=== PATIENT | female | born 1985 ===

== ENCOUNTER 2019-07-02 19:26 | Inpatient (IN) | payer MEDICARE ==
[~2019-07-02] VITALS: Ht 157.5 cm; Wt 48.5 kg
[~2019-07-02 19:26] MED LIST: GLUCOPHAGE500 MG PO; GLUCOTROL 5 MG T5 MG PO; HYDROCODON-ACE1 EAC7 PO
--- NOTE | 2019-07-02 19:59 | NUR ---
URINE SENT TO LAB AT THIS TIME.
[2019-07-02 20:31] LABS: BASOPHILS 0.6 % (0-2); HEMATOCRIT 39.5 % (36.0-48.0); HEMOGLOBIN 13.7 g/dL (12-16); IMMATURE GRANULOCYTES 0.2 % (0-5); MCH 31.6 pg (26.0-34.0); MCHC 34.7 g/dL (31.0-37.0); MEAN PLATELET VOLUME 10.3 fL (7.4-10.4); MONOCYTES 9.5 % (2-11); NEUTROPHILS 53.7 % (40-80); PLATELET COUNT 216 10x3/uL (130-400); RBC 4.34 10x6/uL (4.00-5.40); RDW 13.6 % (11.5-14.5); WBC 5.1 10x3/uL (4.8-10.8)
[2019-07-02 21:06] LABS: CALC OSMOLALITY 274 mosm/kg (275-300); CALCIUM 8.1 mg/dL (8.5-10.1); CARBON DIOXIDE 23.5 mmol/L (21.0-32.0); CHLORIDE - SERUM 101 mmol/L (98-107); CREATININE - SERUM 0.6 mg/dL (0.6-1.3); GLUCOSE 304 mg/dL (74-106); POTASSIUM - SERUM 3.9 mmol/L (3.5-5.1); SODIUM 133 mmol/L (136-145); UREA NITROGEN 8 mg/dL (7-18); eGFR NON AFRICAN AMERICAN > 90 mL/min (90-120)
[2019-07-02 21:11] LABS: ALBUMIN 2.4 g/dL (3.4-5.0); ALKALINE PHOSPHATASE 647 U/L (30-120); ALT (SGPT) 136 U/L (10-68); BILIRUBIN - TOTAL 0.73 mg/dL (0.2-1.3); MAGNESIUM - SERUM 1.6 mg/dL (1.8-2.4); PROTEIN - SERUM 5.4 g/dL (6.4-8.2); T4 THYROXIN - FREE 1.84 ng/dL (0.76-1.46)
[2019-07-02 21:39] LABS: BILIRUBIN NEGATIVE (NEGATIVE); GLUCOSE 1000 mg/dL (NEGATIVE); KETONE MODERATE mg/dL (NEGATIVE); NITRITE NEGATIVE (NEGATIVE); SPECIFIC GRAVITY 1.025 (1.005-1.020); UROBILINOGEN NORMAL (NORMAL)
[2019-07-02 21:48] VITALS: BP 119/82
--- NOTE | 2019-07-02 21:48 | NUR ---
FSBS 208 AT THIS TIME. PT ARROUSES TO VERBAL AND TACTILE STIMULI. DENIES CURRENT NEEDS. WILL CONTINUE TO MONITOR.
[2019-07-02 22:00] VITALS: BP 115/76
[2019-07-02 22:28] LABS: UDS - AMPHET POSITIVE QUAL (NEGATIVE); UDS - BARB NEGATIVE QUAL (NEGATIVE); UDS - BENZO NEGATIVE QUAL (NEGATIVE); UDS - COCAINE NEGATIVE QUAL (NEGATIVE); UDS - OPIATE NEGATIVE QUAL (NEGATIVE); UDS - PCP NEGATIVE QUAL (NEGATIVE); UDS - THC POSITIVE QUAL (NEGATIVE)
--- NOTE | 2019-07-02 22:34 | NUR ---
PER EDP VERBAL ORDER, SANDWICH AND DIET SODA PROVIDED TO PT.
[2019-07-02 23:00] VITALS: BP 97/68
--- NOTE | 2019-07-02 23:51 | NUR ---
FSBS 205 PT ARROUSES TO VERBAL AND TACTILE STIMULI. DENIES NEEDS.
[2019-07-03] VITALS (7 sets, daily range): BP systolic 101–125; BP diastolic 71–88; Ht 157.5 cm; Wt 48.5 kg
--- NOTE | 2019-07-03 02:00 | NUR ---
PATIENT ARRIVED TO FLOOR VIA STRETCHER. PATIENT LETHARGIC UPON ARRIVED PATIENT HARD TO AROUSE. PATIENT FINALLY DID ANSWER WHEN YOU MOVED HER SHOULDERS. PATIENT STATED "YOU DON'T NEED TO SHAKE ME LIKE THAT". PATIENT RESPIRATIONS ARE EVEN AND UNLABORED. NO S/S OF DISTRESS. NO C/O PAIN. PATIENT VITALS 113/77 95% ON ROOM AIR. RESPIRATIONS 20 PULSE 83. PATIENT REFUSED TO ANSWER ANY ADMISSIONS QUESTION. PATIENT HAD A ZIPLOC BAG OF MEDICATIONS LAYING NEXT TO HER PURSE. PATIENT WAS ASKED IF SHE TAKES ANY OF THOSE MEDICATIONS. SHE STATED PROBABLY. WHEN ASKED IF SHE HAD TAKEN ANY TONIGHT SHE DID NOT ANSWER. PATIENT HOME MEDICATIONS INVENTORIED AND SENT TO PHARMACY. ISAI CANTRELL NOTIFIED REGARDING INCOMPLETE MED REC.
[2019-07-03 05:59] LABS: ALBUMIN 2.4 g/dL (3.4-5.0); ALKALINE PHOSPHATASE 699 U/L (30-120); ALT (SGPT) 150 U/L (10-68); BILIRUBIN - TOTAL 0.67 mg/dL (0.2-1.3); CALCIUM 8.3 mg/dL (8.5-10.1); CHLORIDE - SERUM 103 mmol/L (98-107); CREATININE - SERUM 0.7 mg/dL (0.6-1.3); MAGNESIUM - SERUM 1.7 mg/dL (1.8-2.4); POTASSIUM - SERUM 3.9 mmol/L (3.5-5.1); PROTEIN - SERUM 6.1 g/dL (6.4-8.2); SODIUM 137 mmol/L (136-145); UREA NITROGEN 8 mg/dL (7-18); eGFR NON AFRICAN AMERICAN > 90 mL/min (90-120)
[2019-07-03 06:00] LABS: CALC OSMOLALITY 276 mosm/kg (275-300); GLUCOSE 192 mg/dL (74-106)
[2019-07-03 06:10] LABS: BASOPHILS 0.4 % (0-2); EOSINOPHILS 1.5 % (0-7); HEMATOCRIT 44.1 % (36.0-48.0); HEMOGLOBIN 15.3 g/dL (12-16); IMMATURE GRANULOCYTES 0.5 % (0-5); LYMPHOCYTES 27.1 % (15-50); MCH 31.7 pg (26.0-34.0); MCHC 34.7 g/dL (31.0-37.0); MCV 91.3 fL (80.0-100.0); MEAN PLATELET VOLUME 10.7 fL (7.4-10.4); MONOCYTES 9.9 % (2-11); NEUTROPHILS 60.6 % (40-80); RBC 4.83 10x6/uL (4.00-5.40); RDW 13.9 % (11.5-14.5)
[2019-07-03 06:51] LABS: PLATELET COUNT 291 10x3/uL (130-400); WBC 7.9 10x3/uL (4.8-10.8)
--- NOTE | 2019-07-03 19:15 | NUR ---
REPORT RECEIVED, WILL CONTINUE POC. PATIENT IS AAOX4, LYING IN BED MEHRDAD LT SIDE. NO S/S OF DISTRESS OBSERVED, RR EVEN AND UNLABORED ON ROOM AIR. PIV PATENT, INFUSING NS @ 75ML/HR, DRSG C/D/I. PATIENT DENIES FURTHER NEEDS A THIS TIME. CL IN REACH, BED LOCKED AND LOWERED. WILL CTM.
[2019-07-04] VITALS: BP 104/71
--- NOTE | 2019-07-04 03:04 | NUR ---
I have reviewed this patient and I concur with the Shift Assessment completed by the Licensed Practical Nurse today this shift.
[2019-07-04 04:00] VITALS: BP 112/66
[2019-07-04 05:20] LABS: ALKALINE PHOSPHATASE 540 U/L (30-120); ALT (SGPT) 119 U/L (10-68); BILIRUBIN - TOTAL 0.52 mg/dL (0.2-1.3); CALCIUM 8.1 mg/dL (8.5-10.1); CHLORIDE - SERUM 100 mmol/L (98-107); CREATININE - SERUM 0.7 mg/dL (0.6-1.3); MAGNESIUM - SERUM 1.8 mg/dL (1.8-2.4); PROTEIN - SERUM 5.2 g/dL (6.4-8.2); SODIUM 133 mmol/L (136-145); UREA NITROGEN 8 mg/dL (7-18); eGFR NON AFRICAN AMERICAN > 90 mL/min (90-120)
[2019-07-04 05:23] LABS: CALC OSMOLALITY 277 mosm/kg (275-300); GLUCOSE 354 mg/dL (74-106); PHOSPHOROUS 4.1 mg/dL (2.5-4.9)
[2019-07-04 05:45] LABS: BASOPHILS 0.4 % (0-2); EOSINOPHILS 1.3 % (0-7); HEMATOCRIT 42.9 % (36.0-48.0); HEMOGLOBIN 15.1 g/dL (12-16); IMMATURE GRANULOCYTES 0.4 % (0-5); LYMPHOCYTES 23.4 % (15-50); MCH 31.9 pg (26.0-34.0); MCHC 35.2 g/dL (31.0-37.0); MCV 90.5 fL (80.0-100.0); MEAN PLATELET VOLUME 10.4 fL (7.4-10.4); MONOCYTES 9.9 % (2-11); NEUTROPHILS 64.6 % (40-80); PLATELET COUNT 268 10x3/uL (130-400); RBC 4.74 10x6/uL (4.00-5.40); RDW 13.8 % (11.5-14.5); WBC 7.2 10x3/uL (4.8-10.8)
[2019-07-04 08:52] VITALS: BP 110/78
--- NOTE | 2019-07-04 13:45 | NUR ---
DISCHARGE INSTRUCTIONS GIVEN AND EXPLAINED TO PT. CHART COPY SIGNED. PT HAS NO FURTHER QUESTIONS. MICHEAL CLAY PIGEON LOADER GAVE PT TWO KUNAL PASSES. PT'S MEDS FROM PHARMACY GIVEN TO HER. PT STATES SHE DOESN'T KNOW WHERE THE BUS STOP IT IS. THIS NURSE WILL TAKE HER.
--- NOTE | 2019-07-04 13:50 | NUR ---
THIS NURSE WALKED TO BUS STOP AT THE TOP OF THE H[place] BY
--- NOTE | 2019-07-04 14:16 | NUR ---
I have reviewed this patient and I concur with the Shift Assessment completed by the Licensed Practical Nurse today this shift.
--- NOTE | 2019-07-04 16:45 | MORECARE ---
CASE MANAGEMENT DISCHARGE SUMMARY PATIENT: TILA SHEPHERD UNIT: [id number] ADM DATE: 07/03/19 AGE: 33 : 83 SEX: F ROOM/BED: D.2110 AUTHOR: AUGIE EDMONDS PHYSICIAN: REFERRING PHYSICIAN: BRAD BARRY MD DATE OF SERVICE: 07/04/19 Discharge Plan Patient Name: TILA SHEPHERD Facility: [facility]:[place] : 1985 Planned Disposition: Home Anticipated Discharge Date: 07/04/19 Discharge Date: 07/04/2019 Expected LOS: 1 Initial Reviewer: [email or web address] Initial Review Date: 07/04/2019 Generated: 07/04/19 5:44 pm Patient Name: TILA SHEPHERD Page 34872 at 1645 All edits/amendments must be made on the electronic document DICTATION DATE: 07/04/191643 FIELD LABORATORY OPERATOR: DEBBIE 07/04/191643 RPT#: [id number] DC DATE:07/04/19 STATUS: DIS IN [facility] [address] [place] [address] END OF REPORT
--- NOTE | 2019-07-04 17:03 | MORECARE ---
CASE MANAGEMENT DISCHARGE SUMMARY PATIENT: TILA SHEPHERD UNIT: [id number] ADM DATE: 07/03/19 AGE: 33 : 83 SEX: F ROOM/BED: D.2110 AUTHOR: AUGIE EDMONDS PHYSICIAN: REFERRING PHYSICIAN: BRAD BARRY MD DATE OF SERVICE: 07/04/19 Discharge Plan Patient Name: TILA SHEPHERD Facility: [facility]:[place] : 1985 Planned Disposition: Home Anticipated Discharge Date: 07/04/19 Discharge Date: 07/04/2019 Expected LOS: 1 Initial Reviewer: [email or web address] Initial Review Date: 07/04/2019 Generated: 07/04/19 6:02 pm DCPIA - Discharge Planning Initial Assessment Updated by [email or web address]: Gerson Moseley on 07/04/19 5:01 pm * Is the patient Alert and Oriented? Yes * How many steps to enter\exit or inside your home? NONE * [facility] FOR [facility] IN [place] * Pharmacy [facility] ON [facility] * Preadmission Environment Homeless * Other Environment LIVING WITH A FRIEND ON [facility], PT WILL NOT PROVIDE INSURANCE * Facility Name NONE * ADLs Independent * Equipment None * Other Equipment NO MEDICAL EQUIPMENT PROVIDER PREFERENCE * List name and contact numbers for known caregivers / representatives who currently or will assist patient after discharge: NONE PATIENT CALLED A FRIEND: [phone] * Verbal permission to speak to the caregivers and representatives has been obtained from the patient. No * Community resources currently utilized None * Please name any agencies selected above. NONE * Additional services required to return to the preadmission environment? No * Can the patient safely return to the preadmission environment? Yes * Has this patient been hospitalized within the prior 30 days at any hospital? Yes Last DP export: 07/04/19 3:45 p Patient Name: TILA SHEPHERD Page 14560 at 1703 All edits/amendments must be made on the electronic document DICTATION DATE: 07/04/191701 METALWORKING INSTRUCTOR: DEBBIE 07/04/191701 RPT#: [id number] DC DATE:07/04/19 STATUS: DIS IN [facility] [address] [facility] [place] [address] END OF REPORT
--- NOTE | 2019-07-04 17:12 | MORECARE ---
CASE MANAGEMENT DISCHARGE SUMMARY PATIENT: TILA SHEPHERD UNIT: [id number] ADM DATE: 07/03/19 AGE: 33 : 83 SEX: F ROOM/BED: D.0025 AUTHOR: KENDAL,DOC PHYSICIAN: REFERRING PHYSICIAN: BRAD BARRY MD DATE OF SERVICE: 07/04/19 Discharge Plan Patient Name: TILA SHEPHERD Facility: [facility]:[place] : 1985 Planned Disposition: Home Anticipated Discharge Date: 07/04/19 Discharge Date: 07/04/2019 Expected LOS: 1 Initial Reviewer: [email or web address] Initial Review Date: 07/04/2019 Generated: 07/04/19 6:11 pm Comments DCP- Discharge Planning Updated by [email or web address]: Gerson Moseley on 07/04/19 4:[address] Patient Name: TILA SHEPHERD Admission Status: ER Accout number: [id number] Admission Date: 07-03-2019 : 1985 Admission Diagnosis: Attending: BRAD BARRY Current LOS: 1 Anticipated DC Date: 07-04-2019 Planned Disposition: Home Primary Insurance: MEDICARE A & B Discharge Planning Comments: CM MET WITH PT IN ROOM TO DISCUSS DISCHARGE PLANNING AND NEEDS. PT REPORTS BEING HOMELESS WITH NO PLACE TO GO. PT WAS LIVING WITH A FRIEND ON [facility] IN [place]. CM OFFERED HOMELESS RESOURCE LISTING OF SHELTERS FOR [employer] ASSISTANCE, PT STATES SHE HAS ONE. CM PROVIDED IT AGAIN. CM WENT OVER THE NUMBER FOR [facility] AND POINTED OUT THAT THE PHONE IS IN THE ROOM AND OPERATIONAL AND PT CAN CALL THE [facility] AND ASK TO SEE IF THEY HAVE AN AVAILABLE BED. PT STATES SHE WILL JUST GO BACK TO HER FRIENDS HOUSE ON [facility]. CM ASKED IF PT HAS BEEN TO [facility] FOR ASSISTANCE, PT HAS NOT. PT IS AWARE OF THE LOCATION OF [facility]. CM EDUCATED PT ON THE SERVICES AVAILABLE AND ALSO INFORMED HER THAT [facility] WOULD ALSO PROVIDE A COMMUNITY LISTING OF OTHER PROVIDERS FOR POSSIBLE ASSISTANCE. CM OFFERED DRUG TREATMENT PLACEMENT. PT DENIES BEING ADDICTED TO DRUGS AND DENIES NEED FOR DRUG REHAB PLACEMENT. PT ASKED FOR ASSISTANCE IN CALLING [facility] DISTANCE BUT DID NOT WANT TO PROVIDE NUMBER TO CM. CM OFFERED USE OF PHONE, PT CALLED [phone], LEFT MESSAGE FOR SOMEONE TO CALL HER BACK. PT HAS NO MEDICAL EQUIPMENT AND NO OUTSIDE SERVICES ASSISTING IN THE HOME. CM DISCUSSED AVAILABILITY OF HOME HEALTH, REHAB SERVICES AND MEDICAL EQUIPMENT. PT DENIES DISCHARGE NEEDS OTHER THAN NEEDING PLACE TO STAY ON [facility] [place] BUT DOES NOT WANT TO LEAVE [place]. PT ASKED TO STAY AT HOSPITAL, CM EXPLAINED PT IS MEDICALLY STABLE AND THAT CM COULD ASSIST IN LOOKING FOR PLACEMENT [employer], PT DECLINED. PT DID ACCEPT THE RESOUCE AND NEUROPHYSIOLOGIST FROM . PT REPORTS HAVING NO TRANSPORTATION TO GET TO [facility] TODAY AND HAVING NO MONEY. PROVIDED PT WITH TWO BUS PASSES TO GET TO [facility]. PT DENIES FURTHER NEEDS. BEDSIDE NURSE AND FINANCIAL SERVICES CONSULTANT NURSE NOTIFED. Child Care Nurse: Gerson Moseley DCPIA - Discharge Planning Initial Assessment Updated by [email or web address]: Gerson Moseley on 07/04/19 5:01 pm * Is the patient Alert and Oriented? Yes * How many steps to enter\exit or inside your home? NONE * [facility] FOR [facility] IN [place] * Pharmacy [facility] ON [facility] * Preadmission Environment Homeless * Other Environment LIVING WITH A FRIEND ON [facility], PT WILL NOT PROVIDE INSURANCE * Facility Name NONE * ADLs Independent * Equipment None * Other Equipment NO MEDICAL EQUIPMENT PROVIDER PREFERENCE * List name and contact numbers for known caregivers / representatives who currently or will assist patient after discharge: NONE PATIENT CALLED A FRIEND: [phone] * Verbal permission to speak to the caregivers and representatives has been obtained from the patient. No * Community resources currently utilized None * Please name any agencies selected above. NONE * Additional services required to return to the preadmission environment? No * Can the patient safely return to the preadmission environment? Yes * Has this patient been hospitalized within the prior 30 days at any hospital? Yes Last DP export: 07/04/19 4:02 p Patient Name: TILA SHEPHERD Page 90056 at 1712 All edits/amendments must be made on the electronic document DICTATION DATE: 07/04/191710 WAREHOUSE TEAM MEMBER: DEBBIE 07/04/191710 RPT#: [id number] DC DATE:07/04/19 STATUS: DIS IN [facility] [address] [place] [address] END OF REPORT
[2019-07-05 07:12] LABS: HEPATITIS C ANTIBODY 2.7 S/CO RAT (0.0-0.9)
== END 2019-07-04 14:15 | disposition home or self-care (01) | DRG 638 ==
LOC: D.ER 19:26 → D.M2 07-03 01:08
PROVIDERS: Emergency Medicine; ADMIT Internal Medicine Nephrology; ATTEND Internal Medicine Nephrology
DX: E11.65 Type 2 diabetes mellitus with hyperglycemia (principal); F17.213 Nicotine dependence, cigarettes, with withdrawal; E84.9 Cystic fibrosis, unspecified; R74.0 Nonspecific elevation of levels of transaminase and lactic acid dehydrogenase [LDH]; K59.00 Constipation, unspecified; E11.42 Type 2 diabetes mellitus with diabetic polyneuropathy; F15.10 Other stimulant abuse, uncomplicated; A63.0 Anogenital (venereal) warts